=== PATIENT | male | born 1960 | race Caucasian/White ===

== ENCOUNTER 2016-11-10 12:07 | Day surgery (SDC) | payer SELFPAY ==
[~2016-11-10] VITALS: Ht 180.3 cm; Wt 62.8 kg
--- NOTE | ~2016-11-10 | HP ---
PATIENT'S NAME: ZARIA BROOKS [facility] AGE: 56 Y [address] ROOM: [place] [address] LOCATION: [facility] ADMIT DATE: 11/10/2016 History & Physical DISCHARGE DATE: 11/11/2016 FAMILY PHYSICIAN: Alba Baldwin MD ATTENDING PHYSICIAN: Tony Pelaez DATE OF SERVICE: CHIEF COMPLAINT: Left shoulder pain. HISTORY OF PRESENT ILLNESS: The patient is a 56-year-old male from out in [place], [place], who saw Dr. Tony Pelaez several weeks ago and had a fracture of his left shoulder described per Dr. Pelaez and also a fracture of his distal left wrist. He is admitted at this time for elective removal of hardware from his left shoulder. He has a longstanding history of alcohol abuse. Please see history and physical and chart in regard to recent evaluation a couple weeks ago that showed hypokalemia. He had an H and P yesterday done in his home [facility] docs' office which I have reviewed, did not show any obvious contraindications to surgery. He had preop lab done here at [facility] prior to Dr. Pelaez operating. When I see him postop, he is resting quietly in bed with his arm in left sling. He got a cast in his left distal wrist. He does not show any signs of tremors or shakes consistent with alcohol withdrawal, so had a beer yesterday, but has not been "drinking heavily at all." PAST MEDICAL HISTORY AND MEDICATIONS: See nurse's notes. ALLERGIES: SEE NURSE'S NOTES. PREVIOUS OPERATIONS: See old records particularly Dr. Pelaez's note from last admission. SOCIAL HISTORY: Does smoke. FAMILY HISTORY: No history of bleeding problems or general anesthetic reaction. REVIEW OF SYSTEMS: [facility] and previous dictation. PATIENT'S NAME: ZARIA BROOKS [facility] AGE: 56 Y [address] ROOM: [place] [address] LOCATION: [facility] ADMIT DATE: 11/10/2016 History & Physical DISCHARGE DATE: 11/11/2016 FAMILY PHYSICIAN: Alba Baldwin MD ATTENDING PHYSICIAN: Tony Pelaez PHYSICAL EXAMINATION: GENERAL: Middle-aged male who appears to have postop cognition, lying in bed, with his arm in a left sling and cast in his left wrist. HEENT: Shows he wears glasses. Pupils react to light. TMs not visualized. Posterior pharynx clear. NECK: Unremarkable. LUNGS: Clear. HEART: Shows no murmur, gallop, or rub. ABDOMEN: Benign. Without point tenderness. PELVIC AND RECTAL: Not done. EXTREMITIES: As mentioned. NEUROLOGIC: Grossly intact. ASSESSMENT: 1. Fall, remote. 2. Fractured left shoulder, see Dr. Pelaez's note, status post hardware removal today. 3. Distal left wrist fracture. 4. Alcohol abuse. 5. Hypokalemia, resolved. PLAN: Per Dr. Pelaez. KAREN AMAYA MD LINE SERVICE ATTENDANT/modl /[id number] D: T: 034 HISTORY & PHYSICAL
[~2016-11-10 12:07] MED LIST: ADVIL200 MG PO; ATIVAN 0.5MG0.5 MG PO; ATIVAN 1 MG1 MG PO; MELATONIN5 M2 PO; NORCO 10-325 T1 EACH PO; RESTORIL15 MG PO; THERAGRAN-M1 TAB PO; ULTRAM50 MG PO; ZOLOFT50 MG PO
[2016-11-10 12:59] LABS: BASOPHIL % 0.7 %; EOSINOPHIL % 0.2 %; HEMATOCRIT 33.2 % (37.0-53.0); HEMOGLOBIN 11.6 g/dL (12.0-17.0); IMMATURE GRANULOCYTE % 0.2 %; LYMPHOCYTE # 1.1 K/uL (0.8-4.0); LYMPHOCYTE % 24.8 %; MCH 34.8 pg (27.0-34.0); MCHC 34.9 gm/dL (32.0-36.5); MCV 99.7 fl (83.0-98.0); MONOCYTE # 0.3 K/uL (0.0-1.0); MONOCYTE % 7.6 %; MPV 9.1 fl (9.4-12.4); NEUTROPHIL % 66.5 %; NRBC % 0 /100WBC (0-0.00); RBC 3.33 M/uL (4.00-6.00); WBC 4.5 K/uL (4.0-11.0)
[2016-11-10 13:00] LABS: PLATELET COUNT 66 K/uL (150-450); RDW-CV 13.1 % (11.9-14.6)
[2016-11-10 13:16] LABS: ALBUMIN 3.8 gm/dL (3.5-5.0); ALK PHOS 265 IU/L (33-138); ALT 140 IU/L (12-78); ANION GAP 18.7 (10.0-19.0); AST 239 IU/L (10-40); BLOOD UREA NITROGEN 3 mg/dL (6-24); CALCIUM 8.4 mg/dL (8.5-10.5); CHLORIDE 98 mMol/L (96-110); CO2 20 mMol/L (22-32); CREATININE 0.8 mg/dL (0.6-1.3); ESTIMATED GFR (MDRD EQUATION) > 60; POTASSIUM 3.7 mMol/L (3.7-5.1); SODIUM 133 mMol/L (135-145)
[2016-11-10 13:18] LABS: TOTAL BILIRUBIN 0.6 mg/dL (0.0-1.5)
[2016-11-10 14:19] LABS: PROTIME 10.2 SECONDS (9.6-11.1)
--- NOTE | 2016-11-11 04:50 | NUR ---
Significant Event: Dressing has small shadow drainage. Has cast to L) lower arm. CSM WNL. Voids without difficulty. 1 assist with transfers. Sling to arm. Last Percocet at 313. Morphine at 1848. Vomited a couple of times. Phenegran at 2231, no complaints since. Last librium at 313. Has been sweaty and shaky at times. Follow up:
[2016-11-11] MEDS ORDERED: NORCO 5-325 TA1 EACH PO (08:37)
--- NOTE | 2016-11-11 14:28 | NUR ---
Significant Event: Ambulates with one assist. Unsteady. Voids without difficulty. Cast removed, splint applied. Percocet 1 tba last at 1147. Librium last at 0725. Denies nausea. Dressing to L) shoulder intact. Ice at all times. Sling at all times. Krames education given with dismissal instructions, undertanding stated by patient and friend. Patient refused tobacco cessation information. Follow up:
== END 2016-11-11 11:50 | disposition disaster alternative care site (69) ==
LOC: G3N 12:07 → GPOC 12:07 → G3N 17:40 → GPOC 11-11 11:50
PROVIDERS: Orthopaedic Surgery Adult Reconstructive Orthopaedic Surgery
PROC: 0PSG04Z Reposition Left Humeral Shaft with Internal Fixation Device, Open Approach (ICD-10-PCS; principal; 2016-11-10)
DX: S42.202D Unspecified fracture of upper end of left humerus, subsequent encounter for fracture with routine healing (principal); M62.81 Muscle weakness (generalized); K72.10 Chronic hepatic failure without coma; F10.20 Alcohol dependence, uncomplicated; F17.200 Nicotine dependence, unspecified, uncomplicated; Z47.89 Encounter for other orthopedic aftercare; Z79.899 Other long term (current) drug therapy; E87.6 Hypokalemia
CPT/HCPCS: C1713; J0690; J2001; J2250; J2270; J2405; J2550; J3010; J7120

== ENCOUNTER 2017-04-29 13:00 | Observation (INO) | payer SELFPAY ==
[~2017-04-29] VITALS: Ht 180.3 cm; Wt 63.6 kg
--- NOTE | ~2017-04-29 | HP ---
PATIENT'S NAME: ZARIA BROOKS [facility] AGE: 56 Y [address] ROOM: [place] [address] LOCATION: [facility] ADMIT DATE: 04/29/2017 History & Physical DISCHARGE DATE: FAMILY PHYSICIAN: PHYSICIAN, UNKNOWN ATTENDING PHYSICIAN: Nori Schuster DATE OF SERVICE: 04/29/2017 REASON FOR REFERRAL: Bilateral subdural hematomas. PATIENT IDENTIFICATION: Zaria Brooks is a 56-year-old male. PRESENTING COMPLAINT: Fall. HISTORY OF PRESENT ILLNESS: The patient presented to the emergency room at [facility], via ambulance on April 23, 2017. The EMT's report that the patient had told them that he had been unable to get up and had been at home in his recliner for the previous 2 days. The patient also said he had fallen initially on the day of admission to [place], i.e., April 23, and also said he had fallen the previous day or a couple of days previously. The EMT has indicated that they found some alcohol containers and a few Gatorade bottles at the patient's home. While bringing the patient into the emergency room, he apparently had a generalized seizure. By the time they got to the hospital, the patient was awake and confused. A head CT scan was performed. The first CT scan was April 25, 2017, and there was no hematoma seen. Repeat CT scan on April 28 showed bilateral chronic subdural collections, slightly larger on the left side with some acute blood. There was also some blood in the left mid frontal area of the brain. On account of these findings, Dr. Mata contacted me and requested for the patient to be seen. The patient came today for evaluation and treatment. PAST MEDICAL HISTORY: Significant for alcohol dependence. The patient also has a history of Wernicke encephalopathy, generalized muscle weakness, elevated liver enzymes, chronic hepatic failure, and vitamin deficiency. The patient has had shoulder repair surgery in 2016 and another one in 2017. CURRENT MEDICATIONS: None at this time. PATIENT'S NAME: ZARIA BROOKS [facility] AGE: 56 Y [address] ROOM: [place] [address] LOCATION: [facility] ADMIT DATE: 04/29/2017 History & Physical DISCHARGE DATE: FAMILY PHYSICIAN: PHYSICIAN, UNKNOWN ATTENDING PHYSICIAN: Nori Schuster ALLERGIES: NO KNOWN DRUG ALLERGIES. SOCIAL HISTORY: The patient lives alone at home. He is a current every day smoker and has a history of alcohol abuse. He lives in [place], [place]. FAMILY HISTORY: Mother had COPD. Father had Parkinson's disease. REVIEW OF SYSTEMS: A full review of systems was carried out. The only abnormal finding was as described in the history of present illness. PHYSICAL EXAMINATION: GENERAL: The patient is a healthy-looking male,who was not in any distress at the time I saw him. He stood up from his chair, shook my hand, and knew that I was Dr. Schuster. NEUROLOGIC: Speech is intact. Cranial nerves, no deficits seen. Motor examination, the patient has normal strength in all his extremities. His gait is, however, unsteady. SKIN: The patient has bruises on his skin. He is thought to have thrombocytopenia. HEENT: His head is atraumatic. Eyes and Ears: No evidence of trauma. CARDIOVASCULAR: Heart sounds are present. RESPIRATORY: The patient is not short of breath at bedside. HEAD: There is no evidence of trauma to his head. REVIEW OF IMAGING STUDIES: The patient has had [address] scans done, the first one was done on April 25, 2017, the more recent one on April 28, 2017. The latter CAT scan shows bilateral subdural collections, likely hygromas, but with some fresh blood mixed in with the collection over the left frontal region. The patient also has some intraparenchymal hemorrhage in the mid left frontal region. MEDICAL DECISION MAKING: I discussed the situation with the patient and explained the findings to him. At this time, there is no reason for neurosurgical intervention as the patient is quite stable. He will be observed for a couple of days and if he continues to remain stable, we can discharge him home and follow up with him when I come to [place] in a month or two. On the other hand, if his symptoms were to worsen, we will go ahead and perform bur holes for bilateral subdural hematomas. The patient understands this plan of action and I will follow him along while he is in the hospital. PATIENT'S NAME: ZARIA BROOKS [facility] AGE: 56 Y [address] ROOM: [id number] [place], [place] [address] LOCATION: [facility] ADMIT DATE: 04/29/2017 History & Physical DISCHARGE DATE: FAMILY PHYSICIAN: PHYSICIAN, RAQUEL ATTENDING PHYSICIAN: Nori Schuster NORI SCHUSTER MD CNO/modl /[id number] CC: MD Bird Melo MD D: [id number] T: [id number] HISTORY & PHYSICAL
--- NOTE | ~2017-04-29 | DS ---
PATIENT'S NAME: ZARIA BROOKS [facility] AGE: 56 Y [address] ROOM: [address] [address] LOCATION: [facility] ADMIT DATE: 04/29/2017 Discharge Summary DISCHARGE DATE: 05/03/2017 FAMILY PHYSICIAN: Physician, Unknown ATTENDING PHYSICIAN: Nori Hoffmann REASON FOR ADMISSION: The patient was referred by Dr. Mata at [facility]. The patient had presented with a couple of falls, and imaging studies showed bilateral subdural hematomas. The patient also complained of headache. On examination, the patient was able to stand up independently and was oriented with normal strength in all extremities. His gait was, however, unsteady. His condition was not serious enough to require evacuation of the subdural hematomas. The patient was, therefore, observed in hospital and had a repeat CT scan. Again, the repeat CT scan showed that the subdural collections were stable, and the patient's headache continued to improve. By the 03 of May, the patient was well enough to be discharged. He did not have transportation initially and Care Management helped to organize transportation for him. The patient was released from hospital in stable condition. I will be grateful if Dr. Mata could schedule a repeat CT scan in 2 weeks' time to confirm that the hematomas have not increased in size. The patient also knows to contact me if he starts to have headache or if his walking deteriorates. MD CAMILO ADAMES/ankita /[id number] d: 05/09/17 0404 t: 05/10/17 193, DISCHARGE SUMMARY
--- NOTE | 2017-04-30 01:32 | NUR ---
ARRIVED TO FLOOR FROM [facility] AT 1815 VIA AMBULANCE. ON 04/25 WAS TRANSPORTED TO [facility] AFTER HAVING MULTIPLE FALLS AT HOME AND WAS UNABLE TO GET UP OUT OF [place]CL[place] FOR 2 DAYS. HAD SEIZURE UPON ARRIVAL TO ER. WHEN HE WOKE UP HE WAS CONFUSED AND AGITATED. CT ON 04/25 SHOWED NO BLEED. FELL AT [facility] AT SOME POINT DURING HIS STAY THERE. SCAN ON 04/28 SHOWED BILATERAL SUBDURAL HEMATOMAS. HX OF ALCOHOL AND TOBACCO USE, STATES NO ALCOHOL USE IN 4 MONTHS BUT [employer] FACILITY EXAMINER FOUND ALCOHOL CONTAINERS IN HIS HOME. CDIFF POSITIVE AT [place]. UPON ARRIVAL TO [facility], PT IS ALERT/ORIENTED, PLEASANT, AND COOPERATIVE.
--- NOTE | 2017-04-30 05:51 | NUR ---
Significant Event: ALERT/ORIENTEDX3. CHRONIC TINGLING TO FEET. CAN BE UNSTEADY/IMPULSIVE WITH AMBULATION. 1 ASSIST WITH GAIT BELT. VSS. LUNGS CLEAR ON RA. C/O HEADACHE, TYLENOL GIVEN X1. VOIDS PER URINAL. NO BM. NEED CDIFF SAMPLE. ISO FOR CDIFF UPON ARRIVAL FROM OTHER HOSPITAL. BRUISING/DISCOLORATION TO BILATERAL FOREARMS, BUTTOCKS SLIGHTLY RED. RIGHT HAND PIV SL'D. Follow up:
--- NOTE | 2017-04-30 16:02 | NUR ---
Significant Event:Patient is alert and oriented times three. PERRLA. Chronic numbness to feet, otherwise denies any numbness or tingling. Moves extremities spontaneously and on demand, equal strength noted throughout. VSS on room air. Bowel sounds active, 1 BM this shift and was Negative for CDiff. Patient voids per the urinal or the bathroom. Patient ambulates with 1 assist and gaitbelt. Scattered bruising noted throughout arms, scabs noted to patients feet, dressing to foot is intact. Tylenol given for a headache this morning with relief noted. Patient tolerates a regular diet. Peripheral IV is saline locked, flushes well. Follow up:
--- NOTE | 2017-05-01 02:20 | NUR ---
Significant Event: A&OX3. Pupils equal and reactive. Equal strenth throughout. Up 1 assist to SBA gaitbelt. Is on a highlow bed due to history of falls. VSS. RA lungs clear. Regular diet. Last BM 04/30. Nicotiene patch. Generalized bruising and scabs. Has scabed area with gauze drsg to foot. IV to R) forearm SL. Stated that headache pain was tolerable denied pain meds. Follow up: CT scan 05/02. Pt states he does not have a ride home until 05/03.
--- NOTE | 2017-05-01 13:36 | NUR ---
Significant Event:Patient is alert and oriented times three. PERRLA. Chronic numbness to bilateral feet, otherwise denies any numbness or tingling. Moves extremities spontanoeusly and on commmand. Equal strength throughout. VSS on room air. SR on telemtry. Bowel sounds active, 1 bm this shift. Patient voids per the urinal. Patient ambulates with 1 assist and gaitbelt. No complaints of pain this shift. Peripheral IV is saline locked and flushes well. Patient tolerates a regular diet without difficulty. Nicotine patch intact to his left shoulder. Follow up:CT scan in the am.
--- NOTE | 2017-05-02 02:07 | NUR ---
Significant Event:Patient alert and ox3. Up with STBA. Moves all extremeites. Pupils equal and reactive. Does get bradycardic into the 50's when sleeping. C/o left frontal headache with tylenol given x1 at 1955. Does have some chronic tingling to bilat feet. Voids per urinal. PIV saline locked. Follow up:CT this am. Possible discharge tomorrow.
--- NOTE | 2017-05-02 15:51 | NUR ---
Introduced self and care management services to patient. Lives in [place]. Denies concerns about going home on discharge. Says has one step up into kitchen but can manage that okay and has a walker and cane at home. Says his neighbors will check up on him to make sure he is doing okay. Hoping to go home today, will have [facility] come and get him. Waiting for Dr Hoffmann to round.
--- NOTE | 2017-05-02 17:28 | NUR ---
Significant Event: Patient alert and oriented x3. Tingling to feet which is chronic. Denies headache. VSS on room air. Voids per urinal. BM this am. Saline lock to R) wrist. Nicotine patch to R) arm. Recieved Pneumoccal Vaccine this AM. SBA. Walked 3 laps in [place]. Waiting for [facility] to round, waiting on discharge plan. Cooperative with cares. Follow up:
--- NOTE | 2017-05-02 18:26 | NUR ---
05/02/17: AJ YORK, WONG HAS READ/REVIEWED HAILY ONEAL'S RN CHARTING AND AGREES.
--- NOTE | 2017-05-03 04:50 | NUR ---
Significant Event: The patient is Alert and Oriented x3. Up with SBA, gaitbelt. Moves all extremities spontaneously and to command. Equal and strong strength. Pupils are equal and reactive. Complaints of a headache gave Tylenol at 2004. Voids per urinal or bathroom. VSS. On room air. PIV to the Right Forearm saline locked. Bruising to extremities. Allevyn dressing to blister to right ankle, and small scabs noted to bilateral feet. Follow up: Home when ride available.
--- NOTE | 2017-05-03 13:04 | NUR ---
Pt has orders can go home but [facility] can't come get him until . I called [facility] transport and they told me the same thing. I talked with patient and he says he has noone to come get him and is open to other transport companies, was going to write them a check when he gets home. Called [facility] in [place] and left message, waiting for them to call me back.
--- NOTE | 2017-05-03 15:58 | NUR ---
Significant Event: Patient alert and oriented X3. Transfers SBA. Showered this AM. Has chronic tingling to feet. X4 bm's this shift. Voids per urinal. Scabs to feet, alleyvn to R) foot. Bruising to arms. Plans to DC to [facility] with plans to transfer home in AM, awaiting [facility] for orders. Denies pain. VSS. IV to R) forearm, saline locked. Follow up:
--- NOTE | 2017-05-03 16:31 | NUR ---
Talked with Wendy and also with [facility] transport [employer], neither one can do transport today, [facility] can transport tomorrow morning at 0900. Called Dr Hoffmann and discussed with him and pt is ready for discharge and arranged for him to stay in [place] [facility] tonight and have transport home tomorrow. Talked with patient, he is fine with this plan, and has Tylenol (what he is taking now) to take tonight if needed while in [place]. Discussed plan for discharge tonight with pt nurse and requested she have transport take pt to admissions (before 7pm) or ER (after 7pm) to pick pulling machine tender [place] [facility] and then take him to his [place] [facility]. Pt knows he will be independent in [place] [facility] tonight and I will touch base in am to make sure he gets to lobby by 9am tomorrow.
--- NOTE | 2017-05-03 17:15 | NUR ---
I have reviewed and agree with Leandro's charting. anel Vargas
--- NOTE | 2017-05-03 20:45 | NUR ---
PT DICHARGED BY DR. SCHUSTER TO GO TO [facility] FOR THE NIGHT AND HOME IN THE MORNING PER HIS TRANSPORTATION ARRANGEMENTS. LEFT FLOOR AT 1955. HE IS TO HAVE A FOLLOW UP APPOINTMENT IN [address] SCAN OF BRAIN. VSS ON RA. RIGHT WRIST PIV DISCONTINUED. MEDICATION AND DISCHARGE INSTRUCTION GIVEN. UP INDEPENDENTLY, TRANSPORTED TO [facility] VIA WHEELCHAIR.
== END 2017-05-03 19:55 | disposition disaster alternative care site (69) ==
LOC: EDSTATUS 13:00 → GICU 18:07
PROVIDERS: ADMIT Neurological Surgery
DX: S06.5X0A Traumatic subdural hemorrhage without loss of consciousness, initial encounter (principal); F17.210 Nicotine dependence, cigarettes, uncomplicated; R79.89 Other specified abnormal findings of blood chemistry; K72.10 Chronic hepatic failure without coma; Z23 Encounter for immunization; E56.9 Vitamin deficiency, unspecified; Z98.890 Other specified postprocedural states; W19.XXXA Unspecified fall, initial encounter
CPT/HCPCS: G0009; G0378

== ENCOUNTER → 2017-04-29 | Outpatient (CLI) | payer SELFPAY ==
[~2017-04-29] MED LIST changes: +NORCO 5-325 TA1 EACH PO
== END | disposition disaster alternative care site (69) ==
LOC: GAMB 14:46
DX: S06.5X9A Traumatic subdural hemorrhage with loss of consciousness of unspecified duration, initial encounter (principal); F10.10 Alcohol abuse, uncomplicated; E51.2 Wernicke's encephalopathy; D69.6 Thrombocytopenia, unspecified; F17.200 Nicotine dependence, unspecified, uncomplicated; R56.9 Unspecified convulsions; W18.30XA Fall on same level, unspecified, initial encounter
CPT/HCPCS: A0425; A0428